=== PATIENT | female | born 1955 | race Caucasian/White ===

== ENCOUNTER 2016-11-03 04:00 | Emergency (ER) | payer OTHER ==
[~2016-11-03] VITALS: Ht 160 cm; Wt 71.5 kg
[2016-11-03 04:04] VITALS: Ht 160 cm; Wt 71.5 kg
[2016-11-03] MEDS ORDERED: DILTIAZEM 25 MG INJ IV STA (04:15)
[2016-11-03] MEDS ORDERED: SOD CHLORIDE 0.9% 500 ML IV STA (04:15)
[2016-11-03] MEDS ORDERED: DILTIAZEM-D5W 125MG/125ML DRIP 125 ML IV STA (04:15)
--- NOTE | 2016-11-03 04:24 | ERA ---
ER Documentation Chief Complaint Date/Time DATE: 11/03/16 TIME: 04:20 Chief Complaint palpitation HPI Very pleasant 61-year-old female, Wallisian-speaking. [employer] use. The patient is a history of hypertension hyperlipidemia presents the emergency room with palpitations. She states that she woke this morning with a heart racing sensation. She denies any lightheadedness or dizziness, no chest pain no shortness of breath no pleuritic pain. She was found to be in atrial fibrillation with rapid ventricular response at triage. Patient denies any over -the-counter medications, no alcohol abuse. No history of A. fib. No history of bleeding. ROS All systems reviewed and are negative except as per history of present illness. Medications Home Meds Active Scripts Apixaban* (Eliquis*) 5 Mg Tablet, 5 MG PO BID for 30 Days, TAB Prov:GENOVEVA JENNINGS MD 11/03/16 Reported Medications Aspirin* (Aspirin* EC) 81 Mg Tablet.dr, 81 MG PO DAILY, TAB 11/03/16 Ibuprofen* (Ibuprofen*) 200 Mg Capsule, 200 MG PO QID Y for PAIN, CAP 11/03/16 Allergies Allergies: Coded Allergies: No Known Allergy (Unverified , 11/03/16) FmHx Family History: No diabetes Physical Exam Vitals Vital Signs Date Time Temp Pulse Resp B/P Pulse Ox O2 Delivery O2 Flow Rate FiO2 11/03/16 04:48 78 14 165/85 98 11/03/16 04:10 155 20 156/116 98 11/03/16 04:04 97.8 144 20 189/109 99 Physical Exam General: Well developed, well nourished, no acute distress Head: Normocephalic, atraumatic. Eyes: Pupils equally reactive, EOM intact ENT: Moist mucous membranes Neck: Supple, no lymphadenopathy Respiratory: Lungs clear bilaterally, no distress Cardiovascular: Irregularly irregular, no murmurs, rubs, or gallops Abdominal: Soft, non-tender, non-distended, no peritoneal signs : Deferred MSK: No edema, no unilateral swelling, 5/5 strength Neurologic: Alert and oriented, moving all extremities, normal speech, no focal weakness, no cerebellar signs Skin: No rash Psych: Normal mood Result Diagram: 11/03/1642611/03/16426 Results 24 hrs Laboratory Tests Test 11/03/16 04:27 11/03/16 04:40 White Blood Count 9.310^3/ul Red Blood Count 5.1410^6/ul Hemoglobin 14.4g/dl Hematocrit 42.0% Mean Corpuscular Volume 81.7fl Mean Corpuscular Hemoglobin 28.0pg Mean Corpuscular Hemoglobin Concent 34.3g/dl Red Cell Distribution Width 12.4% Platelet Count 09604^3/UL Mean Platelet Volume 10.1fl Neutrophils % 33.4% Lymphocytes % 55.5% Monocytes % 8.0% Eosinophils % 2.7% Basophils % 0.2% Nucleated Red Blood Cells % 0.0/100WBC Neutrophils # 3.110^3/ul Lymphocytes # 5.110^3/ul Monocytes # 0.710^3/ul Eosinophils # 0.310^3/ul Basophils # 0.010^3/ul Nucleated Red Blood Cells # 0.010^3/ul Prothrombin Time 11.5Sec Prothrombin Time Ratio 0.9 INR International Normalized Ratio 0.84 Activated Partial Thromboplast Time 30.3Sec Sodium Level 140mmol/L Potassium Level 3.3mmol/L Chloride Level 106mmol/L Carbon Dioxide Level 26mmol/L Anion Gap 11 Blood Urea Nitrogen 19mg/dl Creatinine 0.77mg/dl Glucose Level 105mg/dl Calcium Level 9.4mg/dl Troponin I < 0.012ng/ml Free Thyroxine Index 2.33ug/ml Thyroxine (T4) 7.9ug/dl Triiodothyronine (T3) Uptake 29.5% Urine Opiates Screen Negative Urine Barbiturates Negative Urine Amphetamines Screen Negative Urine Benzodiazepines Screen Negative Urine Cocaine Screen Negative Urine Cannabinoids Negative Current Medications Medications (Trade) Dose Ordered Sig/Gabe Route PRN Reason Start Time Stop Time Status Last Admin Dose Admin Sodium Chloride (NS) 500 ml @ 500 mls/hr Q1H STAT IV 11/03/16 04:15 11/03/16 05:14 DC 11/03/16 04:36 Diltiazem HCl 10 mg 10 mg ONCE STAT IV 11/03/16 04:15 11/03/16 04:18 DC Diltiazem HCl (Cardizem-D5W 125 Mg/125 ml Drip) 125 ml @ 5 mls/hr ONCE STAT IV 11/03/16 04:15 11/04/16 05:14 Apixaban (Eliquis) 5 mg ONCE ONCE PO 11/03/16 05:00 11/03/16 05:01 DC 11/03/16 05:09 Procedures/MDM EKG, MONITORS, & DIAGNOSTIC IMAGING: Chest x-ray: I reviewed and interpreted a 1 view of the chest Mediastinum: No enlargement Cardiac silhouette: No cardiomegaly Airspace: Clear lung mckeon bilaterally without evidence of pneumothorax Bones: No evidence of fracture EKG: I reviewed and interpreted a 12-lead EKG. Rhythm: Atrial fibrillation with rapid ventricular response Ectopy: None Intervals: No abnormalities ST segments: Rate related depressions, no ST segment elevations T waves: No contiguous inversions Repeat EKG: EKG: I reviewed and interpreted a 12-lead EKG. Rhythm: Normal sinus rhythm Ectopy: None Intervals: No abnormalities ST segments: No elevations or depressions T waves: No contiguous inversions LAB INTERPRETATION: Negative troponin, normal thyroid, negative drug screen MEDICAL DECISION MAKING: The patient presents with what appears to be new onset atrial fibrillation with rapid ventricular response. Unclear etiology, likely secondary to prolonged hypertension, consider structural heart disease though no murmurs auscultated. The patient is hemodynamically stable and does not require emergent cardioversion. The patient will benefit from laboratory testing, rate control investigation for etiology. No evidence of pulmonary embolism. The patient does have a primary care physician and does have close outpatient follow-up. If we are able to obtain rate control the patient may be able to be transitioned to oral medications and discharge home with close outpatient follow -up. However I would have a low threshold for hospitalization given her age and new onset atrial fibrillation. The patient's CHADS-VASC score is 2 placing her at moderate high risk for thromboembolic process including a 2.2% annual stroke risk and a 2.9% risk of systemic embolic process. The patient does not have contraindications to anticoagulation. I believe she would be a candidate for anticoagulation in the form of Eliquis versus Coumadin. I discussed the risks benefits and alternatives with the family at this time. They would be agreeable to anticoagulation. ER COURSE: The patient was given IV fluid, Cardizem was ordered however the patient had spontaneous cardioversion with IV fluids. The patient is now in normal sinus rhythm. Given that the patient has paroxysmal atrial fibrillation she is still a similar risks for thromboembolic process. I discussed the risks, benefits, alternatives of anticoagulation therapy with this patient given diagnosis of atrial fibrillation. Given the patient's moderate to high CHADS-VASC score, given her low risk based on HAS-BLED (0-1), I believe that anticoagulation is appropriate in this patient. I discussed this with the family and the patient and they both agree. The patient will be initiated on Eliquis 5 mg p.o. twice daily. I advised that this can be expensive and if this is not affordable to follow-up with primary care physician for initiation of Coumadin. The patient is currently taking a beta-mer, metoprolol and I advise continuing this medication to prevent secondary arrhythmia. Further medication choices can be delineated through primary care physician and cardiology consultations on an outpatient basis. The patient is prompt outpatient primary care follow-up and referral to cardiology. Referral information provided. The patient should return to the emergency room for any worsening symptoms. I kept the patient and/or family informed of laboratory and diagnostic imaging results throughout the emergency room course. DISPOSITION PLAN: Given the patient's cardioversion and normal sinus rhythm with no evidence of endorgan dysfunction the patient can be safely discharged home on anticoagulation with prompt follow-up. We discussed follow up with the patient's primary care doctor within 24 to 48 hours as needed. We also discussed return to the emergency room for worsening symptoms or worsening condition. Outpatient referral: Cardiology Discharge Medications: Eliquis Departure Diagnosis: Primary Impression: Paroxysmal atrial fibrillation Additional Impressions: Atrial fibrillation with RVR New onset atrial fibrillation Condition: Stable GENOVEVA JENNINGS MD Nov 03, 2016 04:24
[2016-11-03 04:32] LABS: ADD SCAN DIFF NO
[2016-11-03 04:37] LABS: ABNORMAL IP MESSAGE 1; BASOPHILS % 0.2 % (0.0-2.0); EOSINOPHILS # 0.3 10^3/ul (0.0-0.5); EOSINOPHILS % 2.7 % (0.0-7.0); HEMOGLOBIN 14.4 g/dl (12.0-16.0); LYMPHOCYTES # 5.1 10^3/ul (0.8-2.9); LYMPHOCYTES % 55.5 % (15.0-51.0); MEAN CORPUSCULAR HGB CONC 34.3 g/dl (32.0-37.0); MEAN CORPUSCULAR VOLUME 81.7 fl (82.0-101.0); MEAN PLATELET VOLUME 10.1 fl (7.4-10.4); MONOCYTE # 0.7 10^3/ul (0.3-0.9); NEUTROPHIL # 3.1 10^3/ul (1.6-7.5); NEUTROPHILS % 33.4 % (39.0-77.0); PLATELET COUNT 289 10^3/UL (140-415); RED BLOOD COUNT 5.14 10^6/ul (4.20-5.40); RED CELL DISTRIBUTION WIDTH 12.4 % (11.5-14.5); WHITE BLOOD COUNT 9.3 10^3/ul (4.8-10.8)
[2016-11-03] MEDS ORDERED: APIX5TAB PO (04:42)
[2016-11-03 04:50] LABS: INR 0.84; PROTIME 11.5 Sec (12.2-14.2); PT RATIO 0.9
[2016-11-03 04:51] LABS: PARTIAL THROMBOPLASTIN TIME 30.3 Sec (25.0-35.0)
--- NOTE | 2016-11-03 04:53 | RADRPT ---
PROCEDURE: CHEST - 1 VIEW CLINICAL INDICATION: 61-year-old female with chest pain. TECHNIQUE: A single frontal AP upright portable view of the chest was performed. The images were reviewed on a PACS workstation. COMPARISON: None. FINDINGS: The cardiomediastinal silhouette is within normal limits. There is no evidence for an infiltrate. There is no evidence for congestive heart failure. There is no evidence for pneumothorax. The osseou s structures are intact. IMPRESSION: No evidence for active cardiopulmonary disease. .Connor Cherry MD, MD Date Time Electronically viewed and signed by .Connor Cherry MD, on 11/03/2016 04:53 .M/
[2016-11-03 04:56] LABS: ANION GAP 11 (8-16); BLOOD UREA NITROGEN 19 mg/dl (7-20); CALCIUM 9.4 mg/dl (8.4-10.2); CARBON DIOXIDE 26 mmol/L (21-31); CHLORIDE 106 mmol/L (97-110); CREATININE 0.77 mg/dl (0.44-1.00); GLUCOSE 105 mg/dl (70-220); POTASSIUM 3.3 mmol/L (3.5-5.1); SODIUM 140 mmol/L (135-144)
[2016-11-03] MEDS ORDERED: APIXABAN 5 MG TABLET PO ONE (05:00)
[2016-11-03 05:12] LABS: T3 UPTAKE 29.5 % (23.5-40.5)
[2016-11-03] MEDS ORDERED: IBUP200C PO (05:15)
[2016-11-03] MEDS ORDERED: ASPI-664 PO (05:15)
[2016-11-03 05:19] LABS: BARBITURATES Negative (NEGATIVE); BENZODIAZEPINES Negative (NEGATIVE); CANNABINOIDS Negative (NEGATIVE); COCAINE Negative (NEGATIVE); OPIATES Negative (NEGATIVE)
[2016-11-03 05:19] LABS: TROPONIN-I < 0.012 ng/ml (0.00-0.12)
[2016-11-03 05:31] VITALS: BP 171/73; PULSE 68; RESP 22; TEMP 98.8
== END 2016-11-03 05:32 | disposition home or self-care (01) ==
LOC: E/R 04:00
DX: I48.0 Paroxysmal atrial fibrillation (principal); I10 Essential (primary) hypertension; Z79.82 Long term (current) use of aspirin
CPT/HCPCS: 71010; 80048; 80307; 84436; 84479; 84484; 85025; 85610; 85730; 93005; J7040; 36415